=== PATIENT | female | born 1935 | race Caucasian/White ===

== ENCOUNTER 2019-11-26 19:41 | Emergency (ER) | payer OTHER ==
[~2019-11-26] VITALS: Ht 147.3 cm; Wt 50.8 kg
[2019-11-26 19:41] VITALS: BP 158/90
--- NOTE | 2019-11-26 21:00 | NUR ---
PT AMBULATED TO CHAIR A
[2019-11-26] MEDS ORDERED: LISINOPRIL 20 MG TAB PO ONE (21:15)
--- NOTE | 2019-11-26 21:28 | NUR ---
PER PT, PARAMEDICS MAY HAVE HER KEYS. CALLED [facility], WAS TOLD THAT THERE IS A CASE ALREADY AND PT CAN EXPECT A CALL WITHIN 24 HRS. PT MADE AWARE.
[2019-11-26 21:29] VITALS: BP 138/78
--- NOTE | 2019-11-26 21:29 | NUR ---
Patient discharged with v/s stable. Written and verbal after care instructions given and explained. Patient verbalized understanding. Ambulatory with steady gait. All questions addressed prior to discharge. Advised to follow up with PMD.
--- NOTE | 2019-11-26 21:30 | NUR ---
84/F BIBA FROM HOME. PER EMS, PT FELT ANXIOUS AND WAS TOLD THAT HER BP WAS HIGH. NO HEADACHE, NO SLURRED SPEECH, NO FACIAL DROOP, NO CHEST PAIN. PT REPORTS RESOLUTION OF SYMPTOMS. PT AWAKE AND ALERT, SKIN NORMAL COLOR WARM AND DRY, RR EVEN AND UNLABORED.
--- NOTE | 2019-11-26 21:30 | NUR ---
PT BP WNL, 138/78, DR BRODERICK MADE AWARE, NO NEED TO GIVE LISINOPRIL PO.
== END 2019-11-26 21:29 | disposition home or self-care (01) ==
LOC: MED 19:41
DX: I10 Essential (primary) hypertension (principal); F41.1 Generalized anxiety disorder; Z88.0 Allergy status to penicillin; Z88.5 Allergy status to narcotic agent; Z88.6 Allergy status to analgesic agent
CPT/HCPCS: 99281

== ENCOUNTER 2021-05-24 10:57 | Inpatient (IN) | payer OTHER ==
[~2021-05-24] VITALS: Ht 147.3 cm; Wt 50.3 kg
[2021-05-24 11:07] VITALS: BP 173/98
--- NOTE | 2021-05-24 11:14 | NUR ---
PT W/C ASSISTED TO BED 11
--- NOTE | 2021-05-24 11:15 | NUR ---
DR HAY AT BEDSIDE EVALUATING PT
--- NOTE | 2021-05-24 11:16 | NUR ---
86 Y/O FEMALE BIB NEIGHBORS VIA W/C. C/O FALL THIS AM. PER PT, SHE WAS GETTING OUT OF THE CAR AND FELL BACKWARDS. PT STATES SHE FELL ON BOTTOM FIRST AND THEN HIT BACK OF HER HEAD, DENIES LOC, DENIES HEADACHE. REPORTS LEFT HIP/BUTTOCK PAIN, 8/10, AGGRAVATED DURING MOVEMENT. PT HAS FULL SENSATION TO EXTREMITIES. PEDAL PULSES +2, CAP REFILL <3, L EXT/BUTTOCKS/HEAD NO SWELLING, ABRASIONS NOTED. PT A&OX4, RESPIRATIONS EVEN AND UNLABORED. BED IN LOWEST POSITION, BED RAILS UP X2, FOR SAFETY. PMH: HTN, ANXIETY, ASTHMA MEDS: LISINOPRIL, CLONAZEPAM ALLERGIES: PENICILLIN, CODEINE, DOXYCYCLINE, IBUPROFEN
[2021-05-24] MEDS ORDERED: ACETAMINOPHEN 325 MG TAB PO ONE (11:30)
--- NOTE | 2021-05-24 12:05 | NUR ---
PT TAKEN TO RAD VIA REGINA
--- NOTE | 2021-05-24 12:22 | NUR ---
PT BACK FROM RAD
--- NOTE | 2021-05-24 14:00 | NUR ---
covering for primary RN for relief. pt currently a/o x 4, gcs 15. able to move all extremities freely. NAD
[2021-05-24] MEDS ORDERED: LISI-487 PO (14:14)
[2021-05-24] MEDS ORDERED: AMLO10TA89 PO (14:15)
[2021-05-24] MEDS ORDERED: CLON0.5T PO (14:16)
--- NOTE | 2021-05-24 14:49 | NUR ---
SPOKE WITH PATIENTS DAUGHTER, EDMNOD WOLFF TO PROVIDE UPDATE ON PT. [phone] Addendum: 05/24/21 at 1457 by [email or web address] CALL WITH UPDATES
--- NOTE | 2021-05-24 15:25 | NUR ---
RECEIVED REPORT FROM ER NURSE. AWAITING ARRIVAL TO ROOM 119 A.
--- NOTE | 2021-05-24 15:26 | NUR ---
GAVE REPORT TO LEELA LACEY FOR ADMIT TO [facility], ETA 15 MINS.
--- NOTE | 2021-05-24 15:45 | NUR ---
Patient will be admitted to care of DR ORNELAS. Admited to [facility]. Will go to room 119A. Belongings list completed. Report to LEELA LACEY.
--- NOTE | 2021-05-24 15:53 | NUR ---
PATIENT ARRIVED ON FLOOR, TRANSFERRED BY GURNEY TO THE BED. PATIENT IS AOX4, BENGALI SPEAKING, ABLE TO MAKE NEEDS KNOWN. MED SURG. ON RA. NO COMPLAINTS OF PAIN. IV CLEAN, DRY, AND INTACT. ON RIGHT ANTECUBITAL 20 GAUGE, SALINE LOCK. LEFT BUTTOCKS REDNESS, WOUND CARE CONSULTED, FNS CONSULTED. ADMISSION ASSESSMENT COMPLETED. CALL LIGHT WITHIN REACH. SAFETY MEASURES IN PLACE, HEAD OF BED AT HIGH FOWLERS PER PATIENTS COMFORT, BED IN LOW POSITION, BED LOCKED, SIDE RAILS X2. WILL CONTINUE TO MONITOR.
[2021-05-24 16:00] VITALS: BP 141/80
--- NOTE | 2021-05-24 18:16 | NUR ---
CHECKED ON PATIENT, NO SIGN OF DISTRESS OR PAIN. WILL CONTINUE TO MONITOR. WILL ENDORSE TO STORAGE ARCHITECT.
--- NOTE | 2021-05-24 19:25 | NUR ---
ENDORSED TO SLUICE TENDER RN FOR CONTINUITY OF CARE.
--- NOTE | 2021-05-24 19:25 | NUR ---
RECEIVED REPORT FROM AM SHIFT NURSE. PT ON BED RESTING. NO SOB NOTED. DENIES PAIN. AFEBRILE, ABLE TO MAKE NEEDS KNOWN. SAFETY PRECAUTION IN PLACE. CALL LIGHT WITHIN REACH.
--- NOTE | 2021-05-24 19:33 | NUR ---
CHARGE NURSE TEXTED DR. GEIGER ORTHO CONSULT, AND REPLIED AT 1937 TO COME SEE THE PATIENT.
[2021-05-25] VITALS: BP 118/72
--- NOTE | 2021-05-25 03:00 | NUR ---
PATIENT IS ASLEEP. NO S/S OF RESPIRATORY DISTRESS. SAFETY PRECAUTION IN PLACE. CALL LIGHT ON EASY REACH.
[2021-05-25 05:50] LABS: BASOPHILS # (AUTO) 0.1 K/uL (0.00-0.22); BASOPHILS % (AUTO) 0.7 % (0.0-2.0); EOSINOPHILS # (AUTO) 0.3 K/uL (0-0.4); EOSINOPHILS % (AUTO) 3.9 % (0.0-4.0); HEMATOCRIT 39.1 % (36-48); LYMPHOCYTES % (AUTO) 26.5 % (20.5-51.1); MEAN CORPUSCULAR HEMOGLOBIN 29 pg (27-31); MEAN CORPUSCULAR HGB CONC 33 g/dL (33-37); MONOCYTES # (AUTO) 0.9 K/uL (0.8-1.0); MONOCYTES % (AUTO) 11.7 % (1.7-9.3); NEUTROPHILS # (AUTO) 4.4 K/uL (1.8-7.7); NEUTROPHILS % (AUTO) 57.2 % (42.2-75.2); PLATELET COUNT (AUTO) 224 K/uL (140-450); RED BLOOD CELL COUNT(AUTO) 4.49 MIL/uL (4.20-5.40); RED CELL DISTRIBUTION WIDTH 15.8 % (11.6-13.7); WHITE BLOOD COUNT (AUTO) 7.6 K/uL (4.8-10.8)
[2021-05-25 06:20] LABS: ANION GAP 9.3 (8-16); CARBON DIOXIDE 26.7 mmol/L (21-32); CHLORIDE 109 mmol/L (98-107); CREATININE 0.8 mg/dL (0.6-1.3); GLUCOSE 86 mg/dL (74-106); SODIUM SERUM 141 mmol/L (136-145); UREA NITROGEN, BLOOD 26 mg/dL (7-18)
--- NOTE | 2021-05-25 07:15 | NUR ---
ENDORSED TO AM RN FOR CONTINUITY OF CARE. PATIENT IS STABLE.
--- NOTE | 2021-05-25 07:20 | NUR ---
RECEIVED REPORT FROM NURSE FOR CONTINUITY OF CARE. PATIENT IS AOX4, [place] SPEAKING, ABLE TO MAKE NEEDS KNOWN. MED SURG. ON RA. NO COMPLAINTS OF PAIN. IV CLEAN, DRY, AND INTACT. ON RIGHT ANTECUBITAL 20 GAUGE, SALINE LOCK. LEFT BUTTOCKS REDNESS, WOUND CARE CONSULTED, FNS CONSULTED. ADMISSION ASSESSMENT COMPLETED. CALL LIGHT WITHIN REACH. SAFETY MEASURES IN PLACE, HEAD OF BED AT HIGH FOWLERS PER PATIENTS COMFORT, BED IN LOW POSITION, BED LOCKED, SIDE RAILS X2. WILL CONTINUE TO MONITOR.
[2021-05-25 08:00] VITALS: BP 120/70
[2021-05-25] MEDS: amLODIPine 5 MG TAB PO SCH ×2 (08:29→09:00)
[2021-05-25] MEDS: lisinopriL 20 MG TAB PO SCH ×2 (08:29→09:00)
[2021-05-25] MEDS: ENOXAPARIN 30 MG/0.3 ML SYR SUBQ SCH (08:30)
--- NOTE | 2021-05-25 08:30 | NUR ---
ADMINISTERED SCHEDULED AM MEDICATION. PATIENT REFUSED LISINOPRIL AND NORVASC BECAUSE IT WAS THE WRONG DOSAGE. DR. ORNELAS AWARE. WILL CONTINUE TO MONITOR.
[2021-05-25] MEDS ORDERED: ENOXAPARIN 40 MG/0.4 ML SYR SUBQ SCH (09:00)
--- NOTE | 2021-05-25 09:05 | NUR ---
DR JOHNSON VILA. UPDATED ON PATIENT STATUS AND CONDITION. AWARE PATIENT STATING THAT MEDICATION DOSAGE IS INCORRECT, PATIENT STATES THAT 1 WHITE PILL (NORVASC) AND 2 PINK (ZETRIL). WILL CONTINUE TO MONITOR.
--- NOTE | 2021-05-25 09:14 | NUR ---
PATIENT HAS BEEN SCREENED AND CATEGORIZED LOW NUTRITION RISK. PATIENT WILL BE SEEN WITHIN 7 DAYS OF ADMISSION. 05/31/21 FNS CONSULT RECEIVED NOT APPROPRIATE FOR CLOSED WOUND. MT [address]
[2021-05-25] MEDS: ACETAMINOPHEN 325 MG TAB PO PRN (10:16)
--- NOTE | 2021-05-25 10:20 | NUR ---
PATIENT REQUESTED TYLENOL FOR PAIN. WILL REASSESS. WILL CONTINUE TO MONITOR.
--- NOTE | 2021-05-25 10:50 | NUR ---
PATIENT VERBALIZES NO PAIN. NO SIGNS OF DISTRESS OR PAIN. WILL CONTINUE TO MONITOR.
--- NOTE | 2021-05-25 12:00 | NUR ---
CHECKED ON PATIENT. NO SIGNS OF DISTRESS OR PAIN. WILL CONTINUE TO MONITOR.
--- NOTE | 2021-05-25 13:56 | NUR ---
DC PLANNING: ORDER FOR SNF PLACEMENT, LEFT FOR [facility] GIANNI ALONSO ASKING FOR CONTRACTED FACILITIES. CM WILL CONTINUE TO FOLLOW FOR NEEDS. Addendum: 05/26/21 at 1339 by Kerri Trevino CM DC PLANNING: SPOKE WITH GIANNI SALAS FOR [facility] REGARDING SNF PLACEMENT. PATIENT ACCEPTED TO [facility], [address] [place] [address], [id number]. ROOM NUMBER [id number], ACCEPTING MD DR. MILA KWAN. NUMBER TO CALL REPORT [phone]. [facility]SP[facility] WILL BE PROVIDED BY [facility], , PIC UP TIME BETWEEN 5:15 AND 5:30. PATIENTS DAUGHTER INFORMED, STATES SHE WILL BE HERE TO FOLLOW PATIENT TO FACILITY, WILL ALSO EXPLAIN THE FACILITY LOCATION. ABOVE ENDORSED TO PATIENTS DEEPTHI NG. GIANNI WILL CONTINUE TO FOLLOW FOR NEEDS.
--- NOTE | 2021-05-25 14:19 | NUR ---
CHECKED ON PATIENT. NO SIGN OF DISTRESS OR PAIN. WILL CONTINUE TO MONITOR.
--- NOTE | 2021-05-25 15:40 | NUR ---
PT. WITH LOW SE SCALE AT RISK, CONTINUE TO FOLLOW PRESSURE INJURY PREVENTION INTERVENTIONS. -TURN AND REPOSITION PATIENT Q 2H -ASSESS AND MONITOR SKIN CONDITION DURING POSITION CHANGE -OFFLOAD BILATERAL HEELS BY PLACING PILLOWS UNDER CALVES AT ALL TIMES, UNLESS OTHERWISE CONTRAINDICATED -PRESSURE REDISTRIBUTION BY PLACING PILLOWS AND OFFLOADING SACRALCOCCYX -KEEP SKIN CLEAN AND DRY AT ALL TIMES.
[2021-05-25 16:00] VITALS: BP 134/72
--- NOTE | 2021-05-25 16:30 | NUR ---
CHECKED ON PATIENT. NO SIGNS OF DISTRESS OR PAIN. WILL CONTINUE TO MONITOR.
--- NOTE | 2021-05-25 17:55 | NUR ---
CHECKED ON PATIENT. NO SIGN OF DISTRESS OR PAIN. WILL CONTINUE TO MONITOR. WILL ENDORSE TO PROJECT LEAD.
--- NOTE | 2021-05-25 19:36 | NUR ---
ENDORSED TO CORPORATE SALES TRAINER FOR CONTINUITY OF CARE.
--- NOTE | 2021-05-25 19:37 | NUR ---
RECEIVED PT FROM AM NURSE FOR CONTINUITY OF CARE. PT IS AAOX4, NO S/S OF RESPIRATORY DISTRESS. DENIES PAIN SAFETY PRECAUTION IN PLACE. CALL LIGHT WITHIN REACH
[2021-05-26] VITALS: BP 130/70
[2021-05-26] MEDS: ACETAMINOPHEN 325 MG TAB PO PRN ×2 (04:39→16:25)
--- NOTE | 2021-05-26 04:39 | NUR ---
COMPLAINED OF MILD PAIN ON HER BACK. TYLENOL GIVEN ORDERED.
--- NOTE | 2021-05-26 07:35 | NUR ---
ENDORSED TO THE AM SHIFT RN FOR CONTINUITY OF CARE. PT IN STABLE CONDITION.
[2021-05-26 09:00] VITALS: BP 125/71
[2021-05-26] MEDS ORDERED: amLODIPine 5 MG TAB PO SCH (09:00)
[2021-05-26] MEDS ORDERED: lisinopriL 20 MG TAB PO SCH (09:00)
[2021-05-26] MEDS ORDERED: clonazePAM 0.5 MG TAB PO PRN (09:50)
[2021-05-26] MEDS: ENOXAPARIN 30 MG/0.3 ML SYR SUBQ SCH (09:51)
[2021-05-26] MEDS ORDERED: CALC-55 PO (12:32)
[2021-05-26] MEDS ORDERED: AMLO-3 PO (12:32)
[2021-05-26] MEDS ORDERED: LISI20TA29 PO (12:32)
[2021-05-26] MEDS ORDERED: ACET-1182 PO (12:32)
[2021-05-26] MEDS ORDERED: LOV30I SUBQ (12:32)
[2021-05-26] MEDS ORDERED: CLON0.5T4 PO (12:32)
[2021-05-26 17:00] VITALS: BP 124/72
[2021-05-26] MEDS ORDERED: NAPROXEN 500 MG TAB PO SCH (17:00)
--- NOTE | 2021-05-26 17:40 | NUR ---
REPORT GIVEN TO DEEPTHI RIGGS AT [facility] IN [place]. PT MEDICATED WITH TYLENOL AT 1620 PRIOR TO TRANSFER. SALINE LOCK REMOVED. PT HAS ALL BELONGINGS AND PAPERWORK SIGNED. DAUGHTER WAS NOTIFIED AND AWARE. GURNEY TRANSPORT AT BEDSIDE. PT LEFT IN STABLE COND.
[2021-05-26] MEDS ORDERED: CALCIUM CARB/VIT-D 500 MG/200 IU 1 TAB PO SCH (21:00)
== END 2021-05-26 17:40 | DRG 536 ==
LOC: MED 10:57 → MTU 14:48
PROVIDERS: ADMIT Internal Medicine; ATTEND Internal Medicine
DX: S32.592A Other specified fracture of left pubis, initial encounter for closed fracture (principal); I10 Essential (primary) hypertension; J45.909 Unspecified asthma, uncomplicated; W01.0XXA Fall on same level from slipping, tripping and stumbling without subsequent striking against object, initial encounter; Z88.0 Allergy status to penicillin; Z88.8 Allergy status to other drugs, medicaments and biological substances; Z88.5 Allergy status to narcotic agent; Z90.49 Acquired absence of other specified parts of digestive tract; Y93.89 Activity, other specified; Y92.89 Other specified places as the place of occurrence of the external cause; Y99.8 Other external cause status
CPT/HCPCS: 36415; 72220; 73502; 80048; 85025; 97112; 97116; 97163-GP; 97530; 99285; J1650

== ENCOUNTER 2021-08-08 13:03 | Emergency (ER) | payer OTHER ==
[~2021-08-08] VITALS: Ht 154.9 cm; Wt 47.6 kg
[~2021-08-08 13:03] MED LIST: ACET-1182 PO; AMLO-3 PO; AMLO10TA89 PO; CALC-55 PO; CLON0.5T PO; CLON0.5T4 PO; LISI-487 PO; LISI20TA29 PO; LOV30I SUBQ
[2021-08-08 13:29] VITALS: BP 148/79
--- NOTE | 2021-08-08 16:15 | NUR ---
86/F BIB DAUGHTER WITH C/O LEFT ANKLE PAIN. PER DAUGHTER PATIENT SLIPPED IN THE KITCHEN LAST NIGHT, C/O 8/10 LEFT ANKLE AND LEFT KNEE PAIN. STATES UNABLE TO AMBULATE DUE TO PAIN. DENIES HEAD INJURY OR LOC.
[2021-08-08] MEDS ORDERED: HYDROcodone/APAP 5/325 MG 1 TAB TAB ONE (17:04)
[2021-08-08] MEDS: HYDROcodone/APAP 5/325 MG 1 TAB TAB PO ONE (17:10)
[2021-08-08] MEDS: ACETAMINOPHEN EXTRA STRENGTH 500 MG TAB PO ONE (17:15)
[2021-08-08] MEDS ORDERED: ACET-10509 PO (17:58)
--- NOTE | 2021-08-08 18:07 | NUR ---
Patient discharged with v/s stable. Written and verbal after care instructions ABOUT ANKLE FRACTURE AND TIBIAL FRACTURE given and explained. Patient alert, oriented and verbalized understanding of instructions. Wheel Chair Assisted with to car. All questions addressed prior to discharge. ID band removed. Patient advised to follow up with PMD. Rx of TYLENOL EXTRA STRENGTH given. Patient educated on indication of medication including possible reaction and side effects. Opportunity to ask questions provided and answered.
== END 2021-08-08 18:07 | disposition home or self-care (01) ==
LOC: MED 13:03
DX: S82.52XA Displaced fracture of medial malleolus of left tibia, initial encounter for closed fracture (principal); J45.909 Unspecified asthma, uncomplicated; I10 Essential (primary) hypertension; Z79.899 Other long term (current) drug therapy; Z88.0 Allergy status to penicillin; Z88.1 Allergy status to other antibiotic agents; Z88.5 Allergy status to narcotic agent; W19.XXXA Unspecified fall, initial encounter; Y93.89 Activity, other specified; Y92.090 Kitchen in other non-institutional residence as the place of occurrence of the external cause; Y99.8 Other external cause status
CPT/HCPCS: 72192; 73562; 73590; 73610; 99284

== ENCOUNTER 2022-11-12 04:22 | Observation (INO) | payer OTHER ==
[~2022-11-12] VITALS: Ht 149.9 cm; Wt 52.6 kg
[2022-11-12 04:22] VITALS: BP 141/66
[~2022-11-12 04:22] MED LIST changes: +ACET-10509 PO
--- NOTE | 2022-11-12 04:35 | NUR ---
Patient being evaluated by physician ON EMS RMOODY
[2022-11-12] MEDS ORDERED: LIDOCAINE 5% 1 EA PATCH TP STA (04:41)
[2022-11-12] MEDS ORDERED: methylPREDNISolone SS 125 MG/2 ML VIAL IVP ONE (04:45)
[2022-11-12] MEDS ORDERED: ALBUTEROL SULFATE/IPRATROPIU 3 ML SOL IH ONE ×3 (04:45→07:42)
[2022-11-12] MEDS ORDERED: ACETAMINOPHEN EXTRA STRENGTH 500 MG TAB PO ONE (04:45)
--- NOTE | 2022-11-12 05:03 | NUR ---
PT PANFILO PETER. TAKEN TO BED 11
--- NOTE | 2022-11-12 05:15 | NUR ---
RESPIRATORY AT BEDSIDE FOR MED NEB TX
[2022-11-12 05:24] LABS: BASOPHILS # (AUTO) 0.1 K/uL (0.00-0.22); EOSINOPHILS # (AUTO) 0.4 K/uL (0-0.4); EOSINOPHILS % (AUTO) 4.7 % (0.0-4.0); HEMATOCRIT 40.5 % (36-48); HEMOGLOBIN 13.5 g/dL (12.0-16.0); LYMPHOCYTES # (AUTO) 1.8 K/uL (2.5-16.5); LYMPHOCYTES % (AUTO) 19.4 % (20.5-51.1); MEAN CORPUSCULAR HEMOGLOBIN 28 pg (27-31); MEAN CORPUSCULAR HGB CONC 33 g/dL (33-37); MEAN CORPUSCULAR VOLUME 84.7 fL (80-94); MONOCYTES # (AUTO) 0.9 K/uL (0.8-1.0); MONOCYTES % (AUTO) 9.1 % (1.7-9.3); NEUTROPHILS # (AUTO) 6.3 K/uL (1.8-7.7); NEUTROPHILS % (AUTO) 65.8 % (42.2-75.2); PLATELET COUNT (AUTO) 307 K/uL (140-450); RED BLOOD CELL COUNT(AUTO) 4.78 MIL/uL (4.20-5.40); RED CELL DISTRIBUTION WIDTH 15.7 % (11.6-13.7); WHITE BLOOD COUNT (AUTO) 9.5 K/uL (4.8-10.8)
[2022-11-12 05:48] LABS: ALBUMIN 3.3 g/dL (3.4-5.0); ANION GAP 14.2 (8-16); ASPARTATE AMINOTRANSFERASE 30 U/L (15-37); CARBON DIOXIDE 30.1 mmol/L (21-32); CHLORIDE 101 mmol/L (98-107); GLUCOSE 103 mg/dL (74-106); POTASSIUM 4.3 mmol/L (3.5-5.1); SODIUM SERUM 141 mmol/L (136-145); TOTAL BILIRUBIN 0.3 mg/dL (0.0-1.0); UREA NITROGEN, BLOOD 31 mg/dL (7-18)
--- NOTE | 2022-11-12 05:54 | NUR ---
PT RETURN FROM RADIOLOGY
[2022-11-12] MEDS ORDERED: MORPHINE SULFATE 4 MG/ML SYR IVP PRN (07:00)
[2022-11-12] MEDS ORDERED: ACETAMINOPHEN 325 MG TAB PO PRN (07:00)
[2022-11-12] MEDS ORDERED: POTASSIUM CHLORIDE 10 MEQ TABER PO PRN (07:00)
[2022-11-12] MEDS ORDERED: HYDROcodone/APAP 5/325 MG 1 TAB TAB PO PRN (07:00)
[2022-11-12] MEDS ORDERED: ALBUTEROL SULFATE/IPRATROPIU 3 ML SOL IH SCH (07:00)
[2022-11-12] MEDS ORDERED: ONDANSETRON 4 MG/2 ML VIAL IVP PRN (07:00)
[2022-11-12] MEDS ORDERED: NACL 0.9% 1,000 ML IV SCH (07:00)
--- NOTE | 2022-11-12 07:51 | NUR ---
ASSUMED PATIENT CARE AAOX4 SPEECH CLEAR, ON CARDIAC MO NITOR, WILL CONTINUE TO MONITOR.
[2022-11-12] MEDS ORDERED: AZITHROMYCIN 500 MG in DEXTROSE 5% 250 ML IV SCH (09:00)
[2022-11-12] MEDS ORDERED: methylPREDNISolone SS 40 MG/ML VIAL IVP SCH (09:00)
[2022-11-12] MEDS ORDERED: ENOXAPARIN 40 MG/0.4 ML SYR SUBQ SCH (09:00)
[2022-11-12] MEDS ORDERED: DOCUSATE SODIUM 100 MG GELCAP PO SCH (09:00)
[2022-11-12] MEDS ORDERED: methylPREDNISolone SS 40 MG in WATER STERILE 1 ML IV ONE (09:00)
[2022-11-12] MEDS ORDERED: AZITHROMYCIN 500 MG INJ VIAL IV ONE (09:06)
[2022-11-12] MEDS ORDERED: ENOXAPARIN 60 MG/0.6 ML SYR SUBQ ONE (09:07)
--- NOTE | 2022-11-12 09:50 | NUR ---
PATIENT AMBULATORY TO THE BATHROOM WITH MINIMAL ASSISTANCE.
[2022-11-12] MEDS ORDERED: AZIT500T8 PO (10:00)
--- NOTE | 2022-11-12 10:03 | NUR ---
ADMITTING PHYSICIAN AT BEDSIDE FOR REASSESSMENT, AWAITING FOR FINAL DISPOSITION.
--- NOTE | 2022-11-12 10:47 | NUR ---
PATIENT DISCHARGE AWAITING FOR TRANSPORTATION, CARGE NURSE MADE AWARE.
--- NOTE | 2022-11-12 10:56 | NUR ---
SPOKE TO LUZ MARY [phone] AWAITING FOR BER.
[2022-11-12 11:22] VITALS: BP 128/72
--- NOTE | 2022-11-12 11:39 | NUR ---
Patient discharged with v/s stable. Written and verbal after care instructions given and explained. Patient verbalized understanding. Wheel Chair Assisted with to car. All questions addressed prior to discharge. Advised to follow up with PMD.
--- NOTE | 2022-11-20 11:26 | NUR ---
LATE ENTRY -- CONFIRMED WITH PRIMARY NURSE, AZITHROMYCIN INFUSION BEGINNING 11/12/22 AT 0939 WAS COMPLETED SAME DAY AT 1139.
== END 2022-11-12 11:20 | disposition home or self-care (01) ==
LOC: MED 04:22 → MTU 07:00
PROVIDERS: ADMIT Student in an Organized Health Care Education/Training Program; ATTEND Student in an Organized Health Care Education/Training Program
DX: J45.909 Unspecified asthma, uncomplicated (principal); Z20.822 Contact with and (suspected) exposure to COVID-19; G89.29 Other chronic pain; M54.9 Dorsalgia, unspecified; I10 Essential (primary) hypertension; F41.9 Anxiety disorder, unspecified; Z88.0 Allergy status to penicillin; Z79.899 Other long term (current) drug therapy
CPT/HCPCS: 36415; 71046; 73030; 80053; 83880; 84484; 85025; 87426; 87804; 93005; 94640; 94760; 96365; 96366; 96372; 96375; 96376; 99285; G0378; J0456; J1650; J2920; J2930; J7060

== ENCOUNTER 2022-12-15 14:46 | Emergency (ER) | payer OTHER ==
[~2022-12-15] VITALS: Ht 147.3 cm; Wt 50.3 kg
[~2022-12-15 14:46] MED LIST changes: -AMLO10TA89 PO; +AZIT500T8 PO; -LISI-487 PO
[2022-12-15 14:52] VITALS: BP 138/74
--- NOTE | 2022-12-15 15:02 | NUR ---
NATE Holden evaluating patient at bedside
--- NOTE | 2022-12-15 15:08 | NUR ---
87 y/o F BIB caregiver c/o rash to forehead x 1 week, runny nose, "pimple/swelling" inside both nostrils for the last 5 days. Denies pain at this time. Denies SOB, cough, fever, chills. Caregiver at bedside. Bed locked in lowest position, side rails x 1. PMH: asthma, HLD Meds: ASA81, fluticasone/salmereol, tylenol Allergies: PCN, codeine, doxycycline, ibuprofen
[2022-12-15] MEDS ORDERED: BACTO TP (15:21)
[2022-12-15] MEDS ORDERED: LORA-1048 PO (15:21)
--- NOTE | 2022-12-15 15:28 | NUR ---
Patient discharged with v/s stable. Written and verbal after care instructions given and explained for Rash, Adult. Patient alert, oriented and verbalized understanding of instructions. Ambulatory with by caregiver. All questions addressed prior to discharge. ID band removed. Patient advised to follow up with PMD. Rx of Bactroban 2% Oint, Loratadine given. Patient educated on indication of medication including possible reaction and side effects. Opportunity to ask questions provided and answered.
== END 2022-12-15 15:28 | disposition home or self-care (01) ==
LOC: MED 14:46
DX: R21 Rash and other nonspecific skin eruption (principal); J45.909 Unspecified asthma, uncomplicated; I10 Essential (primary) hypertension; Z79.899 Other long term (current) drug therapy; Z88.0 Allergy status to penicillin; Z88.5 Allergy status to narcotic agent; Z79.1 Long term (current) use of non-steroidal anti-inflammatories (NSAID); Z88.8 Allergy status to other drugs, medicaments and biological substances
CPT/HCPCS: 99283